=== PATIENT | female | born 2000 | race Caucasian/White ===

== ENCOUNTER → 2019-09-18 | Outpatient (CLI) | payer BC, OTHER ==
--- NOTE | 2019-09-19 09:39 | REP ---
MRI left shoulder: History: Pain in the left shoulder. No known injury. Limited range of motion. Rule out biceps tendonitis. Technique: Axial, oblique coronal, and oblique sagittal imaging planes were utilized. T1 and T2-weighted scans were obtained with and without fat saturation. MRI findings: Glenohumeral and acromioclavicular joints are normally aligned. Cortical and medullary bone signal intensity are normal. No significant joint effusion is seen. There is no evidence of subacromial or subdeltoid bursal effusion. No supraspinatus cuff tear is seen. The infraspinatus and subscapularis tendons appear intact. T2-weighted scans do show a subtle area of increased signal intensity in the biceps tendon just below the genu which may reflect biceps tendinosis. No other abnormality. Impression: Subtle focus of increased T2 signal in the biceps tendon just below the genu which may reflect biceps tendinosis. Otherwise negative MRI study of the left shoulder. Electronically Signed by Robbin Hickey MD 09/19/2019 09:46 A
== END ==
LOC: M RAD 17:09
PROVIDERS: ATTEND Orthopaedic Surgery Sports Medicine
DX: M25.512 Pain in left shoulder (principal); M79.602 Pain in left arm